=== PATIENT | male | born 1960 | race Caucasian/White ===

== ENCOUNTER 2021-01-15 15:52 | Emergency (ER) | payer BC ==
[2021-01-15] MEDS ORDERED: Aspirin 81 MG Tab.Chew PO ONE (15:58)
--- NOTE | 2021-01-15 16:01 | PCM.EKG ---
#1 Interpretation EKG Date: 01/15/21 Time: 15:54 Rhythm: NSR Rate (Beats/Min): 104 [place]: Normal P-Wave: Present QRS: Normal ST-T: Normal QT: Normal Comparison: NA - No Prior EKG EKG Interpretation Comments: Sinus tachycardia rate of 104 without ischemic changes
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
[2021-01-15 16:30] LABS: BLOOD UREA NITROGEN,BUN 21 mg/dL (7.0-18.0); CARBON DIOXIDE,CO2 24.7 mmol/L (21.0-32.0); CHLORIDE,CL 104 mmol/L (98-107); GLUCOSE RANDOM 93 mg/dL (74-106); POTASSIUM,K 3.6 mmol/L (3.5-5.1); SODIUM,NA 137 mmol/L (136-148)
--- NOTE | 2021-01-15 16:53 | CR ---
INDICATION: Chest pain. TECHNIQUE: Chest 1 view. COMPARISON: None FINDINGS: Cardiovascular and mediastinum: Heart size and vasculature are normal in caliber and appearance. Mediastinum is within normal limits. Lungs and pleural space: Lungs are clear. No sign of infiltrate or mass. No sign of pleural effusion. No pneumothorax. Bones and soft tissues: No significant findings. IMPRESSION: Unremarkable chest. Dictated by Colin Barrera MD @ 01/15/2021 4:51:19 PM (Electronically Signed)
[2021-01-15] MEDS ORDERED: Iopamidol 755 MG/ML 500 ML Multipack Bottle IVPUSH STA (17:26)
--- NOTE | 2021-01-15 18:46 | CT ---
INDICATION: Chest pain. Elevated D-dimer. TECHNIQUE: CT chest PE was acquired with 100 cc Isovue 370 IV contrast. COMPARISON: None. FINDINGS: Heart and vasculature: Contrast opacification of the pulmonary arterial tree is adequate. No sign of pulmonary embolism. Heart size is normal. Thoracic aorta and pulmonary artery are normal in caliber.Coronary artery atherosclerosis is present. Lungs and pleural: Mild bibasilar atelectasis. Lungs otherwise clear. No pleural effusions, pleural thickening, or pneumothorax. Lymph nodes/mediastinum: No mediastinal, hilar, or axillary adenopathy. Chest wall: No masses. Upper abdomen: No acute or significant findings. Bones: Unremarkable for age. IMPRESSION: Coronary atherosclerosis. Otherwise unremarkable CT of the chest. No pulmonary embolism in the lungs are clear except for mild bibasilar atelectasis. Please note that all CT scans at this facility use dose modulation, iterative reconstruction, and/or weight-based dosing when appropriate to reduce radiation dose to as low as reasonably achievable. Dictated by Clark Brambila MD @ 01/15/2021 6:44:35 PM (Electronically Signed)
== END 2021-01-15 19:05 | disposition home or self-care (01) ==
LOC: MW.ED 15:52
DX: R07.2 Precordial pain (principal); Z88.2 Allergy status to sulfonamides; Z20.822 Contact with and (suspected) exposure to COVID-19
CPT/HCPCS: 36415; 71045; 71275; 80053; 84443; 84484; 85025; 85379; 87635; 93005; 99285; A9270; Q9967; U0002